=== PATIENT | female | born 1970 | race Two or more races ===

== ENCOUNTER → 2020-02-18 | Outpatient (CLI) | payer OTHER | END | disposition home or self-care (01) | LOC: LAB 14:01 | PROVIDERS: ATTEND Preventive Medicine Preventive Medicine/Occupational Environmental Medicine | DX: Z02.1 Encounter for pre-employment examination (principal) | CPT/HCPCS: 36415; 86706; 86735; 86762; 86765; 86787 ==

== ENCOUNTER → 2020-03-31 | Outpatient (CLI) | payer OTHER | END | disposition home or self-care (01) | LOC: LAB 12:17 | PROVIDERS: ATTEND Nurse Practitioner Family | DX: U07.1 COVID-19 (principal) | CPT/HCPCS: C9803; U0003 ==

== ENCOUNTER 2020-06-05 00:56 | Emergency (ER) | payer SELFPAY ==
[~2020-06-05] VITALS: Ht 152.4 cm; Wt 89.8 kg
[2020-06-05 03:00] VITALS: BP 133/87
[2020-06-05] MEDS ORDERED: KETOROLAC TROMETH 60MG/2ML VIAL IM ONE (03:00)
[2020-06-05 04:00] LABS: Urine Bacteria FEW /hpf (None Seen); Urine Blood Negative /uL (Negative); Urine Mucus FEW (None Seen); Urine Specific Gravity 1.029 (1.001-1.035); Urine WBC 3 /hpf (0 - 5)
== END 2020-06-05 04:46 | disposition home or self-care (01) ==
LOC: ER 00:56
DX: M54.16 Radiculopathy, lumbar region (principal); R07.89 Other chest pain
CPT/HCPCS: 81001; 81025; 96372; 99283; J1885

== ENCOUNTER 2020-06-06 09:34 | Emergency (ER) | payer BC, OTHER ==
[~2020-06-06] VITALS: Ht 165.1 cm; Wt 88.5 kg
[2020-06-06 09:34] VITALS: BP 128/77
[2020-06-06] MEDS ORDERED: traMADol HCL 50 MG TAB PO ONE (10:30)
[2020-06-06] MEDS ORDERED: ONDANSETRON ODT 4 MG TAB PO ONE (10:30)
[2020-06-06 10:35] LABS: Urine Bacteria NONE SEEN /hpf (None Seen); Urine Blood Negative /uL (Negative); Urine Mucus FEW (None Seen); Urine Specific Gravity 1.018 (1.001-1.035); Urine WBC <1 /hpf (0 - 5)
== END 2020-06-06 10:58 | disposition home or self-care (01) ==
LOC: ER 09:34
DX: K57.90 Diverticulosis of intestine, part unspecified, without perforation or abscess without bleeding (principal); K76.0 Fatty (change of) liver, not elsewhere classified
CPT/HCPCS: 74176; 81001; 99284; Q0162

== ENCOUNTER 2020-08-25 06:31 | Emergency (ER) | payer BC ==
[~2020-08-25] VITALS: Ht 165.1 cm; Wt 86.2 kg
[2020-08-25 07:26] VITALS: BP 135/78
[2020-08-25 07:43] LABS: Basophils # (auto) 0 10 ^3/uL (0-0.2); Basophils % (auto) 0.2 % (0.0-2.0); Eosinophils # (auto) 0.2 10 ^3/uL (0-0.8); Eosinophils % (auto) 1.3 % (0.0-7.0); Hemoglobin 16.2 g/dL (12.2-16.2); Lymphocytes # (auto) 1.6 10 ^3/uL (0.4-5.4); Lymphocytes % (auto) 13.5 % (10.0-50.0); Mean Corpuscular Hemoglobin 28.5 pg (28.0-32.0); Mean Corpuscular Hgb Conc. 33.8 g/dL (32.0-36.0); Mean Corpuscular Volume 84.5 fL (80.0-100.0); Monocytes # (auto) 0.6 10 ^3/uL (0-1.3); Monocytes % (auto) 4.8 % (0.0-12.0); Neutrophils # (auto) 9.4 10 ^3/uL (1.6-8.6); Neutrophils % (auto) 80.2 % (37.0-80.0); Nucleated Red Blood Cells % 0.2 %; Platelet Count (auto) 286 10^3/uL (140-450); Red Blood Cells 5.68 10^6/uL (4.0-5.20); Red Cell Distribution Width 14.3 % (11.8-14.3); White Blood Cell 11.7 10^3/uL (4.4-10.8)
[2020-08-25] MEDS ORDERED: SODIUM CHLORIDE 0.9% 1,000 ML IV ONE (07:45)
[2020-08-25] MEDS ORDERED: MORPHINE SULFATE 4 MG/ML SYR/VIAL IV ONE (07:45)
[2020-08-25] MEDS ORDERED: ONDANSETRON HCL 4 MG/2 ML VIAL IV ONE (07:45)
[2020-08-25 07:56] LABS: Albumin 3.7 g/dL (3.4-5.0); Calcium 9.1 mg/dL (8.5-10.1); Potassium 4.2 mmol/L (3.5-5.1)
[2020-08-25 07:58] LABS: Urine Bacteria NONE SEEN /hpf (None Seen); Urine Blood Negative /uL (Negative); Urine Specific Gravity 1.023 (1.001-1.035); Urine WBC 3 /hpf (0 - 5)
[2020-08-25 08:00] LABS: BUN/Creatinine Ratio 17.6; Bilirubin, Total 0.9 mg/dL (0.2-1.0)
== END 2020-08-25 08:54 | disposition home or self-care (01) ==
LOC: ER 06:31
DX: N39.0 Urinary tract infection, site not specified (principal); D72.829 Elevated white blood cell count, unspecified; J45.909 Unspecified asthma, uncomplicated; Z88.0 Allergy status to penicillin
CPT/HCPCS: 36415; 74176; 80053; 81001; 83690; 85025; 96361; 96374; 96375; 99284; J2270; J2405; J7030

== ENCOUNTER 2020-10-14 10:49 | Emergency (ER) | payer BC ==
[~2020-10-14] VITALS: Ht 154.9 cm; Wt 86.2 kg
[2020-10-14] MEDS ORDERED: methylPREDNISolone SOD SUCC 125 MG/2 ML VL ONE (10:55)
[2020-10-14] MEDS ORDERED: methylPREDNISolone SOD SUCC 125 MG/2 ML VL IM ONE (11:00)
[2020-10-14 13:41] VITALS: BP 142/84
[2020-10-14] MEDS ORDERED: EPINEPHrine HCL 1 MG/1 ML AMP SC ONE (14:00)
== END 2020-10-14 14:30 | disposition home or self-care (01) ==
LOC: ER 10:49
DX: T78.40XA Allergy, unspecified, initial encounter (principal); J45.909 Unspecified asthma, uncomplicated; Z88.0 Allergy status to penicillin; X58.XXXA Exposure to other specified factors, initial encounter
CPT/HCPCS: 96372; 99284; J0171; J2930

== ENCOUNTER → 2021-01-25 | Outpatient (CLI) | payer BC ==
[2021-01-25 13:26] LABS: Basophils # (auto) 0 10 ^3/uL (0-0.2); Basophils % (auto) 0.5 % (0.0-2.0); Eosinophils # (auto) 0.2 10 ^3/uL (0-0.8); Eosinophils % (auto) 2.4 % (0.0-7.0); Hematocrit 45.3 % (36.0-46.0); Hemoglobin 15.1 g/dL (12.2-16.2); Lymphocytes # (auto) 2.2 10 ^3/uL (0.4-5.4); Lymphocytes % (auto) 24.9 % (10.0-50.0); Mean Corpuscular Hemoglobin 28.1 pg (28.0-32.0); Mean Corpuscular Hgb Conc. 33.3 g/dL (32.0-36.0); Mean Corpuscular Volume 84.4 fL (80.0-100.0); Monocytes # (auto) 0.7 10 ^3/uL (0-1.3); Monocytes % (auto) 8.4 % (0.0-12.0); Neutrophils # (auto) 5.6 10 ^3/uL (1.6-8.6); Neutrophils % (auto) 63.8 % (37.0-80.0); Red Blood Cells 5.37 10^6/uL (4.0-5.20); Red Cell Distribution Width 13.4 % (11.8-14.3); White Blood Cell 8.8 10^3/uL (4.4-10.8)
[2021-01-25 13:35] LABS: Urine Bacteria NONE SEEN /hpf (None Seen); Urine Blood Negative /uL (Negative); Urine Hyaline Cast FEW /lpf (0 - 2); Urine Mucus FEW (None Seen); Urine Specific Gravity 1.023 (1.001-1.035); Urine WBC 1 /hpf (0 - 5)
[2021-01-25 14:08] LABS: Cholesterol 224 mg/dL (< 200); HDL Cholesterol 51 mg/dL (40-59); LDL Cholesterol 132 mg/dL (< 100); Triglycerides 238 mg/dL (< 150)
== END | disposition home or self-care (01) ==
LOC: LAB 13:12
PROVIDERS: ATTEND Internal Medicine
DX: M54.9 Dorsalgia, unspecified (principal)
CPT/HCPCS: 36415; 80061; 81001; 84443; 85025

== ENCOUNTER → 2021-03-29 | Outpatient (CLI) | payer BC ==
[2021-03-29 10:04] LABS: Basophils # (auto) 0 10 ^3/uL (0-0.2); Basophils % (auto) 0.4 % (0.0-2.0); Eosinophils # (auto) 0.3 10 ^3/uL (0-0.8); Hematocrit 47.4 % (36.0-46.0); Hemoglobin 15.8 g/dL (12.2-16.2); Lymphocytes % (auto) 23.2 % (10.0-50.0); Mean Corpuscular Hemoglobin 28.4 pg (28.0-32.0); Mean Corpuscular Hgb Conc. 33.3 g/dL (32.0-36.0); Mean Corpuscular Volume 85.3 fL (80.0-100.0); Monocytes # (auto) 0.6 10 ^3/uL (0-1.3); Monocytes % (auto) 7.2 % (0.0-12.0); Neutrophils # (auto) 5.8 10 ^3/uL (1.6-8.6); Neutrophils % (auto) 66.2 % (37.0-80.0); Nucleated Red Blood Cells % 0.1 %; Red Blood Cells 5.56 10^6/uL (4.0-5.20); Red Cell Distribution Width 13.3 % (11.8-14.3); White Blood Cell 8.7 10^3/uL (4.4-10.8)
[2021-03-29 10:36] LABS: INR 1.02 (0.9-1.15)
== END | disposition home or self-care (01) ==
LOC: LAB 09:39
PROVIDERS: ATTEND Internal Medicine
DX: R04.0 Epistaxis (principal)
CPT/HCPCS: 36415; 85025; 85610; 85652

== ENCOUNTER 2021-05-13 14:32 | Emergency (ER) | payer BC ==
[~2021-05-13] VITALS: Ht 152.4 cm; Wt 98.0 kg
[2021-05-13 15:19] VITALS: BP 143/61
[2021-05-13] MEDS ORDERED: KETOROLAC TROMETH 60MG/2ML VIAL IM ONE (16:00)
[2021-05-13] MEDS ORDERED: ONDANSETRON ODT 4 MG TAB PO ONE (16:00)
== END 2021-05-13 16:39 | disposition home or self-care (01) ==
LOC: ER 14:38
DX: G44.209 Tension-type headache, unspecified, not intractable (principal); J45.909 Unspecified asthma, uncomplicated; Z90.710 Acquired absence of both cervix and uterus
CPT/HCPCS: 70450; 96372; 99284; J1885; Q0162

== ENCOUNTER 2021-11-01 17:12 | Emergency (ER) | payer BC ==
[~2021-11-01] VITALS: Ht 152.4 cm; Wt 90.7 kg
[2021-11-01] MEDS ORDERED: ACETAMINOPHEN 500 MG TAB PO ONE (17:15)
[2021-11-01] MEDS ORDERED: HYDROcodone-ACET 5/325MG TAB PO ONE (18:00)
[2021-11-01] MEDS ORDERED: AZIT1POW PO (19:53)
[2021-11-01] MEDS ORDERED: METH4PAK PO (19:53)
[2021-11-01 22:00] VITALS: BP 138/84
== END 2021-11-01 22:12 | disposition home or self-care (01) ==
LOC: ER 17:12
DX: J20.9 Acute bronchitis, unspecified (principal); J45.909 Unspecified asthma, uncomplicated; Z90.710 Acquired absence of both cervix and uterus; Z20.822 Contact with and (suspected) exposure to COVID-19; Z88.0 Allergy status to penicillin
CPT/HCPCS: 36415; 71046

== ENCOUNTER → 2021-11-02 | Outpatient (CLI) | payer BC ==
[~2021-11-02] MED LIST: AZIT1POW PO; METH4PAK PO
== END | disposition home or self-care (01) ==
LOC: LAB 07:13
PROVIDERS: ATTEND Nurse Practitioner
DX: Z20.822 Contact with and (suspected) exposure to COVID-19 (principal)
CPT/HCPCS: C9803; U0003

== ENCOUNTER 2024-08-06 15:46 | Inpatient (IN) | payer BC, OTHER ==
[~2024-08-06] VITALS: Ht 152.4 cm; Wt 87.0 kg
--- NOTE | 2024-08-06 15:55 | ECG ---
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
--- NOTE | 2024-08-06 15:58 | ED.PDOC ---
HPI Comments HPI: Poor Historian. 54-year-old female presents to emergency department for evaluation of substernal chest pain that is radiating to the left shoulder. Patient has some clear productive cough patient had a TB test done to the left forearm on July 30, 2024. She went to see her PCP for follow up. This TB test was a work requirement. Patient presenting today with the symptoms suggesting that this is due to the TB test. Is unclear on my assessment that the two are related. Patient voiced some nonspecific shortness of breath that is associated with the heart racing. States that the symptoms have been going on for six days and intermittent in nature. Past Medical History: Asthma, Past Surgical History: Hysterectomy, ectopic Vitals: Temp: 98.2 RR: 18 HR: 85 O2: 92% on RA BP: 128/72 REVIEW OF SYSTEMS: CONSTITUTIONAL: Denies acute: fever, diaphoresis, chills, HEAD: Denies acute: headache, photophobia Eyes: Denies acute: Double vision, vision loss, eye pain, eye discharge. EARS: Denies acute: tinnitus, hearing loss, ear discharge, ear pain, THROAT: Denies acute: sore throat, swelling, difficulty swallowing , pain with swallowing, change in voice. NECK: Denies acute: neck pain, neck swelling, stiff neck. HEART: Denies acute : , LUNGS: Denies acute: wheezing, hemoptysis ABDOMEN: Denies acute: abdominal pain, Nausea, Vomiting, diarrhea, melena , hematemesis, hematochezia SKIN: Denies acute: rash, redness, lesions, itchiness. EXTREMITIES: Denies acute: calf pain, numbness, tingling, weakness, denies pain in extremity. Denies acute: Low back pain. Neuro: Denies acute: focal neurological deficit, motor or sensory focal neurological deficit, tremors, seizure like activity, confusion, dizziness, change in mental status, loss of bowel or bladder function, cauda equina like symptoms. : Denies acute: dysuria, hematuria, flank pain, increase in urinary frequency. PSYCH: Denies acute: hallucination, suicidal ideation, homicidal ideation. FEMALE: Denies acute: abnormal vaginal bleeding, foul odor, unusual discharge. PHYSICAL EXAM: General: ----[id number]----acute distress, awake and alert. Head: normocephalic, atraumatic. Neck: supple, trachea is midline, no swelling. Throat: Normal phonation. Eyes:, no erythema, no purulent discharge, no proptosis, no icterus. Heart: regular rate, regular rhythm, no significant murmur appreciated. Lungs: no apparent respiratory distress, Able to speak in full sentences. No wheezing, no rhonchi, no crackles. No stridors Clear to auscultation bilaterally. Abdomen: non tender to palpation, non distended, soft, no guarding, no rebound, + bowel sounds. Neuro: Awake, Alert, oriented to name, self, situation, follows commands GCS=15. Speech is normal. Skin: no petechia, no purpura, no cyanosis, non-pale, not jaundice. Lower extremities: --no - Pitting edema no deformity, no focal swelling, no calf TTP. Makes eye contact. moves all four extremities. Face: no apparent facial droop. Ambulating in the ED independently. . No nuchal rigidity, Kernig's sign, Brudzinski's sign, no meningeal signs. ED COURSE: Time Seen by MD: 15:52 Primary Care Provider: TRICIA Chong Notes: Nurses Notes, Medications, Allergies Allergies: Coded Allergies: Penicillins (Verified Allergy, Intermediate, 08/06/24) Home Meds Active Scripts Azithromycin (Zithromax) 1 Gm Pow, 1 PACK PO ONCE, #1 PACK Prov:LASHON MCCLAIN MD 11/01/21 Methylprednisolone (Medrol Dosepak) 4 Mg Олег, 4 MG PO UD, #21 TAB UAD Prov:LASHON MCCLAIN MD 11/01/21 Information Source: Patient Mode of Arrival: Ambulatory Severity: Mild Timing: Hours Duration: Since onset Prehospital treatment: None Onset: At Rest Cardiac Risk Factors: None PE Risk Factors: None History of: None Modifying Factors: Nothing Associated Signs and Symptoms: Palpitations Past Medical History PAST MEDICAL HISTORY: Anemia, Anxiety, Asthma Surgical History: Hysterectomy 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 Was a procedure done?: No CP Differential Dx Differential Diagnosis: N/A Differential Diagnosis: Other (Ddx include but not limitied to gastritis, musculoskeletal pain, radiculopathy, atypical chest pain, dissection, aneurysm, ACS, unstable angina, hiatal hernia, GERD, anxiety, costochondritis, PE, pneumothroax, neoplasm, cardiac ischemia, drug abuse, anemia.) X-Ray, Labs, Meds, VS Vital Signs Date Time Temp Pulse Resp B/P (MAP) Pulse Ox O2 Delivery O2 Flow Rate FiO2 08/06/24 21:13 70 18 122/76 (91) 95 08/06/24 21:12 122/76 08/06/24 20:33 98.2 74 18 138/80 (99) 95 98.2 08/06/24 20:33 74 18 95 Room Air 08/06/24 20:31 138/80 08/06/24 18:46 66 08/06/24 18:34 98.2 72 18 142/85 (104) 98 98.2 08/06/24 16:55 84 08/06/24 15:54 85 08/06/24 15:52 98.2 85 18 128/72 (90) 93 98.2 Lab Test 08/06/24 18:49 08/06/24 16:55 08/06/24 16:10 08/06/24 16:01 Range/Units Phosphorus Level 3.9 2.4-5.1 mg/dL Magnesium Level 2.2 2.0 1.6-2.6 mg/dL Troponin I High Sensitivity < 3 L 4 4 </=34 ng/L Triglycerides Level 259 H < 150 mg/dL Cholesterol Level 219 H < 200 mg/dL LDL Cholesterol 144 H < 100 mg/dL HDL Cholesterol 56 40-59 mg/dL Thyroid Stimulating Hormone (TSH) 1.26 0.55-4.78 uIU/mL Urine Color Light-yellow Yellow Urine Clarity Clear Clear Urine pH 6.0 5.0-9.0 Urine Specific [place] 1.018 1.001-1.035 Urine Protein Negative Negative Urine Ketones Trace Negative Urine Blood Negative Negative /uL Urine Nitrite Negative Negative Urine Bilirubin Negative Negative Urine Urobilinogen Normal Negative mg/dL Urine Leukocyte Esterase 1+ Negative /uL Urine RBC <1 0 - 4 /hpf Urine Microscopic WBC 5 0-5 /HPF Urine Squamous Epithelial Cells Few <5 /hpf Urine Bacteria None seen None Seen /hpf Urine Glucose Normal Normal mg/dL Urine Opiates Screen Neg NEGATIVE Urine Fentanyl Screen Neg NEGATIVE Urine Barbiturates Screen Neg NEGATIVE Urine Phencyclidine Screen Neg NEGATIVE Urine Amphetamines Screen Neg NEGATIVE Urine Benzodiazepines Screen Neg NEGATIVE Urine Cocaine Screen Neg NEGATIVE Urine Cannabinoids Screen Neg NEGATIVE White Blood Count 14.4 H 4.4-10.8 10^3/uL Red Blood Count 5.41 H 4.0-5.20 10^6/uL Hemoglobin 15.4 12.2-16.2 g/dL Hematocrit 46.1 H 36.0-46.0 % Mean Corpuscular Volume 85.3 80.0-100.0 fL Mean Corpuscular Hemoglobin 28.4 28.0-32.0 pg Mean Corpuscular Hemoglobin Concent 33.3 32.0-36.0 g/dL Red Cell Distribution Width 13.2 11.8-14.3 % Platelet Count 243 140-450 10^3/uL Mean Platelet Volume 8.8 6.9-10.8 fL Neutrophils (%) (Auto) 69.4 37.0-80.0 % Lymphocytes (%) (Auto) 22.1 10.0-50.0 % Monocytes (%) (Auto) 6.4 0.0-12.0 % Eosinophils (%) (Auto) 1.7 0.0-7.0 % Basophils (%) (Auto) 0.4 0.0-2.0 % Neutrophils # (Auto) 10.0 H 1.6-8.6 10 ^3/uL Lymphocytes # (Auto) 3.2 0.4-5.4 10 ^3/uL Monocytes # (Auto) 0.9 0-1.3 10 ^3/uL Eosinophils # (Auto) 0.2 0-0.8 10 ^3/uL Basophils # (Auto) 0.1 0-0.2 10 ^3/uL Nucleated Red Blood Cells 0.1 % D-Dimer, Quantitative 0.21 0.0-0.49 mg/L FEU Sodium Level 138 136-145 mmol/L Potassium Level 3.6 3.5-5.1 mmol/L Chloride Level 102 98-107 mmol/L Carbon Dioxide Level 26 20-31 mmol/L Anion Gap 10 5-15 Blood Urea Nitrogen 21 9-23 mg/dL Creatinine 0.77 0.550-1.02 mg/dL Glomerular Filtration Rate Calc 93 >90 mL/min BUN/Creatinine Ratio 27.3 H 10.0-20.0 Serum Glucose 110 H 74-106 mg/dL Hemoglobin A1c 5.4 <5.7 % A1C Lactic Acid Level 1.0 0.4-2.0 mmol/L Calcium Level 10.1 8.7-10.4 mg/dL Total Bilirubin 0.4 0.2-1.0 mg/dL Aspartate Amino Transferase (AST) 17 13-40 U/L Alanine Aminotransferase (ALT) 21 7-40 U/L Alkaline Phosphatase 96 46-116 U/L B-Type Natriuretic Peptide 6.39 0-100 pg/mL Total Protein 7.8 5.7-8.2 g/dL Albumin 4.9 H 3.2-4.8 g/dL Vitamin B12 Level 331 211-911 pg/mL Vitamin D 25-Hydroxy 19.8 L 30.0-100 ng/mL Current Medications Medications (Trade) Dose Ordered Sig/Aaron Route Start Time Stop Time Status Last Admin Aspirin (Ecotrin Enteric Coated Tablet) 325 mg ONCE ONCE PO 08/06/24 16:15 08/06/24 16:16 DC 08/06/24 20:30 Nitroglycerin (Ntrostat Sublingual) 0.4 mg ONCE ONCE SL 08/06/24 16:15 08/06/24 16:16 DC 08/06/24 20:31 [place] [address] Ph: [phone] DIAGNOSTIC IMAGING Diagnostic Imaging Report : [id number] Signed PATIENT: WENDY DELGADO ACCT: [id number] UNIT: [id number] : 1970 LOC: ER ROOM / BED: / AGE / SEX: 54 / F ADM STATUS: REG ER SERVICE 1552 ORDERING PHYSICIAN: AMENA MINAYA DO PROCEDURE(s): CXRP - CHEST PORTABLE REASON: CP ORDER NUMBER(s): [id number], ACCESSION NUMBER(s): [id number] CHEST RADIOGRAPH Indication: CP Technique: Single frontal view of the chest was obtained COMPARISON: None FINDINGS: Lines and Tubes: None Lungs: Clear Pleura: No effusion. No pneumothorax. Cardiomediastinal contours: Unremarkable Bones: Unremarkable IMPRESSION: No acute disease. ATED BY: MAYUR WHITAKER MD DICTATED DATE/TIME: 08/06/241646 SIGNED BY: MAYUR WHITAKER MD SIGNED DATE/TIME: 08/06/241646 CC: Time of 1ST Reevaluation: 16:20 Reevaluation 1ST: Unchanged Patient Education/Counseling: Diagnosis, Treatment Family Education/Counseling: No Family Present Comments I am unable to see a relationship between the TB test and the patient's presentation today. Nonetheless patient will be admitted for further evaluation and treatment. Vital signs are stable in triage. Patient presented with the above HPI.--cardiac----workup was initiated. patient was found with the above mentioned diagnosis. the following medications were ordered: please refer to order lists of meds and tests obtained by myself Dr. Minaya. Patient ED course and VS have been stabilized. Patient has been reassessed in the ED and remained in a stable condition. Patient has been observed in the ED adequate length of time to insure improvement/stability. Escalation of care considered: Consideration of escalation to observation or admission Patient was ADMITTED to the medicine team for further evaluation and treatment of their presentation. All the reports of any imaging studies that were ordered by myself were reviewed by myself. Departure 1 Departure Time of Disposition: 16:41 Impression: Primary Impression: Chest pain Additional Impression: Leukocytosis Disposition: ADMITTED INPATIENT Admit to: [facility] Condition: Guarded Additional Instructions: [place] [address] Ph: [phone] DIAGNOSTIC IMAGING Diagnostic Imaging Report : [id number] Signed PATIENT: WENDY DELGADO ACCT: [id number] UNIT: [id number] : 1970 LOC: ER ROOM / BED: / AGE / SEX: 54 / F ADM STATUS: REG ER SERVICE 1551 ORDERING PHYSICIAN: AMENA MINAYA DO PROCEDURE(s): CXRP - CHEST PORTABLE REASON: CP ORDER NUMBER(s): [id number], ACCESSION NUMBER(s): [id number] CHEST RADIOGRAPH Indication: CP Technique: Single frontal view of the chest was obtained COMPARISON: None FINDINGS: Lines and Tubes: None Lungs: Clear Pleura: No effusion. No pneumothorax. Cardiomediastinal contours: Unremarkable Bones: Unremarkable IMPRESSION: No acute disease. ATED BY: MAYUR WHITAKER MD DICTATED DATE/TIME: 08/06/241646 SIGNED BY: MAYUR WHITAKER MD SIGNED DATE/TIME: 08/06/241646 CC: Discharged With: Self Critical Care Note Critical Care Time?: No Heart Score Heart Score: Heart Score Response (Comments) Value History Slightly Suspicious 0 EKG Normal 0 Age 45-64 1 Risk Factors 1 or 2 risk factors 1 Troponin Normal limit 0 Total 2 I personally scribed for AMENA MINAYA DO ([email or web address]) on 08/06/24 at 16:23. Electronically submitted by Yani Hairston ([employer]). I personally scribed for AMENA MINAYA DO ([email or web address]) on 08/06/24 at 17:04. Electronically submitted by Yani Hairston ([employer]). I personally scribed for AMENA MINAYA DO ([email or web address]) on 08/06/24 at 17:38. Electronically submitted by Yani Hairston ([employer]). I personally scribed for AMENA MINAYA DO ([email or web address]) on 08/06/24 at 19:46. Electronically submitted by Naomi Wood ([email or web address]). AMENA MINAYA DO Aug 06, 2024 15:57
[2024-08-06 16:17] LABS: Basophils # (auto) 0.1 10 ^3/uL (0-0.2); Basophils % (auto) 0.4 % (0.0-2.0); Eosinophils # (auto) 0.2 10 ^3/uL (0-0.8); Eosinophils % (auto) 1.7 % (0.0-7.0); Hematocrit 46.1 % (36.0-46.0); Hemoglobin 15.4 g/dL (12.2-16.2); Lymphocytes # (auto) 3.2 10 ^3/uL (0.4-5.4); Lymphocytes % (auto) 22.1 % (10.0-50.0); Mean Corpuscular Hemoglobin 28.4 pg (28.0-32.0); Mean Corpuscular Hgb Conc. 33.3 g/dL (32.0-36.0); Mean Corpuscular Volume 85.3 fL (80.0-100.0); Monocytes # (auto) 0.9 10 ^3/uL (0-1.3); Monocytes % (auto) 6.4 % (0.0-12.0); Neutrophils % (auto) 69.4 % (37.0-80.0); Nucleated Red Blood Cells % 0.1 %; Platelet Count (auto) 243 10^3/uL (140-450); Red Blood Cells 5.41 10^6/uL (4.0-5.20); Red Cell Distribution Width 13.2 % (11.8-14.3); White Blood Cell 14.4 10^3/uL (4.4-10.8)
[2024-08-06 16:36] LABS: Alanine Aminotransferase 21 U/L (7-40); Alkaline Phosphatase 96 U/L (46-116); Anion Gap 10 (5-15); Aspartate Aminotransferase 17 U/L (13-40); BUN/Creatinine Ratio 27.3 (10.0-20.0); Bilirubin, Total 0.4 mg/dL (0.2-1.0); Blood Urea Nitrogen 21 mg/dL (9-23); Calcium 10.1 mg/dL (8.7-10.4); Carbon Dioxide 26 mmol/L (20-31); Chloride 102 mmol/L (98-107); Potassium 3.6 mmol/L (3.5-5.1); Sodium 138 mmol/L (136-145); Total Protein 7.8 g/dL (5.7-8.2)
[2024-08-06 16:37] LABS: Albumin 4.9 g/dL (3.2-4.8); Glucose 110 mg/dL (74-106)
--- NOTE | 2024-08-06 16:50 | DVH ---
CHEST RADIOGRAPH Indication: CP Technique: Single frontal view of the chest was obtained COMPARISON: None FINDINGS: Lines and Tubes: None Lungs: Clear Pleura: No effusion. No pneumothorax. Cardiomediastinal contours: Unremarkable Bones: Unremarkable IMPRESSION: No acute disease.
[2024-08-06 17:41] LABS: Urine Bacteria None Seen /hpf (None Seen)
[2024-08-06 18:21] LABS: Urine Blood Negative /uL (Negative); Urine Clarity Clear (Clear); Urine Color Light-Yellow (Yellow); Urine Protein, UAD Negative (Negative); Urine Specific Gravity 1.018 (1.001-1.035); Urine Squamous Epithelial Cell FEW /hpf (<5); Urine Urobilinogen Normal (Negative); Urine WBC 5 /HPF (0-5)
[2024-08-06] MEDS: ASPirin-EC 325mg tab PO ONE (20:30)
[2024-08-06] MEDS: NITROGLYCERIN 0.4 MG SL TAB SL ONE (20:31)
[2024-08-06] MEDS ORDERED: DOCUSATE SOD 100 MG CAP PO PRN (22:45)
[2024-08-06] MEDS ORDERED: ONDANSETRON HCL 4 MG/2 ML VIAL IV PRN (22:45)
[2024-08-06] MEDS ORDERED: cefTRIAXone 1GM/50ML D5W 50 ML IV ONE (22:45)
[2024-08-06] MEDS ORDERED: DEXTROSE (50%) 50ML SYRG IV PRN (22:45)
[2024-08-06] MEDS ORDERED: NITROGLYCERIN 0.4 MG SL TAB SL PRN (22:45)
[2024-08-06] MEDS ORDERED: LORazepam 0.5 MG TAB PO PRN (22:45)
[2024-08-06] MEDS ORDERED: MORPHINE SULFATE INJ 2 MG/ml SYRG IV PRN (22:45)
--- NOTE | 2024-08-06 22:49 | DVHHPRES ---
History of Present Illness Resident Creating Document: FELIBERTO FABIAN History of Present Illness Rachelle Abdullahi is a 54-year-old female patient who presents to ED with chief complaint of progressive dyspnea from functional class I to functional class III in the past week, associated with flu-like symptoms (denies weakness, nasal congestion, chills, oppressive retrosternal chest pain which worsens with cough in deep breaths) which started approximately one week ago after administration of PPD vaccine. Patient visited urgent care proximally two days ago where she was giving inhaler, steroids and Tylenol, but patient is did not improve prompting her visit to the ED. denies palpitation, syncope, nausea, vomiting, diarrhea, bleeding, dysuria and motor or sensory deficits. Past medical history: Asthma, 2007 bronchitis, 2019 abnormal uterine bleeding after 3rd with abnormal biopsy per patient, ectopic 1995 Surgical history: 2019 hysterectomy, tubal oophorectomy in 1995 Family history: Mother has diabetes, hypertension and breast cancer Social history: Lives in [place] alone (next of kin would be son). Used to live in [place]. Denies current tobacco, alcohol and other drug abuse Allergies: Penicillin and PPD vaccine Home medication denies. Was given inhaler, steroids and Tylenol in urgent care approximately two days ago. Patient seen and examined at bedside. Currently has no new complaints. Past Medical History Per HPI Past Surgical History Per HPI Family History Per HPI Past Social History Per HPI Review of Systems Review of Systems Per HPI Allergies: Coded Allergies: Penicillins (Verified Allergy, Intermediate, 08/06/24) Exam Vital Signs Vital Signs Date Time Temp Pulse Resp B/P (MAP) Pulse Ox O2 Delivery O2 Flow Rate FiO2 08/06/24 21:13 70 18 122/76 (91) 95 08/06/24 20:33 98.2 98.2 08/06/24 20:33 Room Air Exam Patient lying in bed, in no acute distress General: Lucid, afebrile, mucosae are moist Cardiovascular: Normal S1 and S2. No murmurs, gallops or rubs Respiratory: Normal ventilation mechanics. Clear lung sounds on auscultation Abdomen: Soft, nontender, no organomegaly, normal bowel sounds MSK/skin: Mobilizes 4 limbs. Skin is dry and warm Neurological: Oriented in 3 spheres. No motor no sensitive deficits. Pupils are isocoric and reactive Labs/Xrays Labs Test 4/16/25 18:49 08/06/24 16:10 08/06/24 16:01 Range/Units Troponin I High Sensitivity < 3 L </=34 ng/L Urine Color Light-yellow Yellow Urine Clarity Clear Clear Urine pH 6.0 5.0-9.0 Urine Specific [place] 1.018 1.001-1.035 Urine Protein Negative Negative Urine Ketones Trace Negative Urine Blood Negative Negative /uL Urine Nitrite Negative Negative Urine Bilirubin Negative Negative Urine Urobilinogen Normal Negative mg/dL Urine Leukocyte Esterase 1+ Negative /uL Urine RBC <1 0 - 4 /hpf Urine Microscopic WBC 5 0-5 /HPF Urine Squamous Epithelial Cells Few <5 /hpf Urine Bacteria None seen None Seen /hpf Urine Glucose Normal Normal mg/dL White Blood Count 14.4 H 4.4-10.8 10^3/uL Red Blood Count 5.41 H 4.0-5.20 10^6/uL Hemoglobin 15.4 12.2-16.2 g/dL Hematocrit 46.1 H 36.0-46.0 % Mean Corpuscular Volume 85.3 80.0-100.0 fL Mean Corpuscular Hemoglobin 28.4 28.0-32.0 pg Mean Corpuscular Hemoglobin Concent 33.3 32.0-36.0 g/dL Red Cell Distribution Width 13.2 11.8-14.3 % Platelet Count 243 140-450 10^3/uL Mean Platelet Volume 8.8 6.9-10.8 fL Neutrophils (%) (Auto) 69.4 37.0-80.0 % Lymphocytes (%) (Auto) 22.1 10.0-50.0 % Monocytes (%) (Auto) 6.4 0.0-12.0 % Eosinophils (%) (Auto) 1.7 0.0-7.0 % Basophils (%) (Auto) 0.4 0.0-2.0 % Neutrophils # (Auto) 10.0 H 1.6-8.6 10 ^3/uL Lymphocytes # (Auto) 3.2 0.4-5.4 10 ^3/uL Monocytes # (Auto) 0.9 0-1.3 10 ^3/uL Eosinophils # (Auto) 0.2 0-0.8 10 ^3/uL Basophils # (Auto) 0.1 0-0.2 10 ^3/uL Nucleated Red Blood Cells 0.1 % D-Dimer, Quantitative 0.21 0.0-0.49 mg/L FEU Sodium Level 138 136-145 mmol/L Potassium Level 3.6 3.5-5.1 mmol/L Chloride Level 102 98-107 mmol/L Carbon Dioxide Level 26 20-31 mmol/L Anion Gap 10 5-15 Blood Urea Nitrogen 21 9-23 mg/dL Creatinine 0.77 0.550-1.02 mg/dL Glomerular Filtration Rate Calc 93 >90 mL/min BUN/Creatinine Ratio 27.3 H 10.0-20.0 Serum Glucose 110 H 74-106 mg/dL Lactic Acid Level 1.0 0.4-2.0 mmol/L Calcium Level 10.1 8.7-10.4 mg/dL Magnesium Level 2.0 1.6-2.6 mg/dL Total Bilirubin 0.4 0.2-1.0 mg/dL Aspartate Amino Transferase (AST) 17 13-40 U/L Alanine Aminotransferase (ALT) 21 7-40 U/L Alkaline Phosphatase 96 46-116 U/L B-Type Natriuretic Peptide 6.39 0-100 pg/mL Total Protein 7.8 5.7-8.2 g/dL Albumin 4.9 H 3.2-4.8 g/dL Assessment/Plan Assessment/Plan Assessment: Probable pneumonia Gram-positive/Gram-negative Leukocytosis secondary to steroid use Noncardiac chest pain - probable pleuritic chest pain Asthma History of bronchitis in 2006 Newly diagnosed dyslipidemia Vitamin-D deficiency Plan: Chest x-ray shows no acute intra thoracic abnormalities. Ordered chest CT Ordered avalos cultures (blood, urine and sputum) and swab for influenza and COVID Currently under empiric IV antibiotic (azithromycin levofloxacin). On IV steroids and bronchodilators. Started atorvastatin Ordered echocardiogram Replenish vitamin-D Goals of care discussed with patient for over18 minutes: Full code status Discussed plan with Dr. Gibson, patient and nurses: Pending workup to evaluate pneumonia, currently patient is under empiric IV antibiotic (azithromycin and levofloxacin), IV steroids and bronchodilators. Plan discussed with: Patient, Other (Nurses) My Orders Orders - FELIBERTO FABIAN RESIDENT Procedure Category Date Status Time Admit ADMIT 08/06/24 Verified 22:35 Code Status CODE 08/06/24 Verified 22:35 Vital Signs ERICA 08/06/24 Verified 22:35 Review Orders With [facility] 08/06/24 Verified Adm. 22:35 Lorazepam Tablet PHA 08/06/24 Verified (Ativan Tablet) 22:45 Docusate Sodium PHA 08/06/24 Verified Capsule (Colace 22:45 Acetaminophen Tablet PHA 08/06/24 Verified (Tylenol Tablet) 22:45 Notify Md Of Changes [facility] 08/06/24 Verified From Base 22:35 Advance Directive [facility] 08/06/24 Verified 22:35 Chest Two Views XY 08/07/24 Verified Routine 04:00 Echo 2d Mode Cardiac US 08/06/24 Verified DOP 22:35 Patient Condition ORDERS 08/06/24 Verified 22:35 Allergies ERICA 08/06/24 Verified 22:35 Ondansetron Hcl PHA 08/06/24 Verified (Zofran) 22:45 Morphine 2mg Iv Q4hprn [facility] 08/06/24 Verified 22:45 Lovenox 40mg PHA 08/07/24 Verified 10:[address] [facility] 08/06/24 Verified Sublingual (Ntrostat 22:[address] [facility] 08/06/24 Verified Injection 22:45 Oxygen By Nasal RT 08/06/24 Verified Cannula 22:35 Stat Ekg For Chest [facility] 08/06/24 Verified Pain 22:35 Notify Md Of Changes [facility] 08/06/24 Verified From Base 22:35 Restaurant Recruiter For [facility] 08/06/24 Verified 24 Hours 22:35 Emergency Dysrhythmia [facility] 08/06/24 Verified Protocol 22:35 Rhythm Strips Once [facility] 08/06/24 Verified Every Shift 22:35 Vitamin D, 25-Hydroxy LAB 08/06/24 Verified 22:35 Vitamin B12 LAB 08/06/24 Verified 22:35 Thyroid Stimulating LAB 08/06/24 Verified Hormone 22:35 Phosphorus LAB 08/06/24 Verified 22:35 Magnesium LAB 08/06/24 Verified 22:35 Lipid Panel LAB 08/06/24 Verified 22:35 Hemoglobin A1c LAB 08/06/24 Verified 22:35 Drug Screen LAB 08/06/24 Verified 22:35 Complete Blood Count LAB 08/07/24 Verified 04:00 Comprehensive LAB 08/07/24 Verified Metabolic Panel 04:00 PTPTT LAB 08/07/24 Verified 04:00 Azithromycin 500mg/ PHA 08/07/24 Verified 250ml (Zithromax 50 10:00 Azithromycin 500mg/ PHA 08/06/24 Verified 250ml (Zithromax 50 22:45 Ceftriaxone Ivpb PHA 08/07/24 Verified Rocephin 09:00 Ceftriaxone Ivpb PHA 08/06/24 Verified Rocephin 22:45 NS PHA 08/06/24 Verified 22:45 NS PHA 08/06/24 Verified 22:45 Ipratropium Medneb PHA 08/07/24 Verified (Atrovent Medneb) 06:00 Levalbuterol Hcl PHA 08/07/24 Verified (Xopenex Medneb) 00:00 Glucose Blood PHA 08/07/24 Verified (Accu-Chek Comfort 07:00 Mild Sliding Scale PHA 08/07/24 Verified 07:00 Dextrose 50% Syringe PHA 08/06/24 Verified 22:45 Methylprednisolone PHA 08/07/24 Verified Sod Succ (Solu Medrol 10:00 Methylprednisolone PHA 08/06/24 Verified Sod Succ (Solu Medrol 22:45 Date of Service: Aug 06, 2024 Billing Provider: MIKAYLA GIBSON MD Common Visit Codes: [id number] INP/OBS CARE (HIGH) FELIBERTO FABIAN RESIDENT Aug 06, 2024 22:49 MIKAYLA GIBSON MD Aug 07, 2024 19:07
[2024-08-06 23:10] LABS: Magnesium 2.2 mg/dL (1.6-2.6)
[2024-08-06 23:11] LABS: Phosphorus 3.9 mg/dL (2.4-5.1)
[2024-08-06 23:50] LABS: Amphetamine Screen, Urine Neg (NEGATIVE); Barbiturate Scree,Urine Neg (NEGATIVE); Benzodiazephine Screen, Urine Neg (NEGATIVE); Cannabinoid Screen, Urine Neg (NEGATIVE); Cocaine Screen, Urine Neg (NEGATIVE); Opiate Scree,Urine Neg (NEGATIVE); Phencyclidine Screen, Urine Neg (NEGATIVE)
[2024-08-07] VITALS (16 sets, daily range): BP systolic 110–130; BP diastolic 64–79; PULSE 58–111; RESP 12–20; TEMP 97–98.2; O2SAT 91–100
[2024-08-07] MEDS: LEVALBUTEROL HCL 1.25 MG/3 ML NEB NEB SCH (00:38)
[2024-08-07] MEDS: IPRATROPIUM BROM 0.5 MG/2.5ML INH SOL NEB SCH (00:38)
[2024-08-07] MEDS: SODIUM CHLORIDE 0.9% 1,000 ML IV ONE (01:38)
[2024-08-07] MEDS: AZITHROMYCIN 500MG/ 250ML 250 ML IV ONE (01:38)
[2024-08-07] MEDS: ACETAMINOPHEN 325 MG TAB PO PRN (01:38)
[2024-08-07] MEDS: methylPREDNISolone SOD SUCC 40 MG/ML VL IV ONE (01:51)
[2024-08-07] MEDS: SODIUM CHLORIDE 0.9% 1,000 ML IV SCH (02:15)
[2024-08-07] MEDS: ERGOCALCIFEROL 50,000 UNIT(1.25MG) CAP PO SCH (05:15)
[2024-08-07] MEDS: ATORVASTATIN 20 MG TAB PO ONE (05:15)
[2024-08-07] MEDS ORDERED: IPRATROPIUM BROM 0.5 MG/2.5ML INH SOL NEB SCH (06:00)
[2024-08-07] MEDS: InsuLIN REG 1unit/0.01ml Soln (100units/ml) SC SCH (06:22)
[2024-08-07] MEDS: ACCU-CHEK COMFORT CURVE STRIP VI SCH (06:22)
--- NOTE | 2024-08-07 06:39 | DVH ---
XY CHEST TWO VIEWS ROUTINE CLINICAL HISTORY: Pneumonia COMPARISON: CHEST TWO VIEWS ROUTINE on DOS: 11/01/21, CXR2 on DOS: 11/01/21 TECHNIQUE: Frontal and lateral view of the chest was obtained FINDINGS: Lines and Tubes: None Lungs: No focal consolidation. Pleura: No effusion. No pneumothorax. Cardiomediastinal contours: Unremarkable Bones: No acute osseous abnormality. IMPRESSION: 1. No acute cardiopulmonary disease.
--- NOTE | 2024-08-07 06:43 | ECG ---
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
--- NOTE | 2024-08-07 06:43 | ECG ---
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
--- NOTE | 2024-08-07 07:08 | DVH ---
EXAM: CT Chest Without Intravenous Contrast CLINICAL INDICATION: Pneumonia TECHNIQUE: Axial computed tomography images of the chest without intravenous contrast. This CT exam was performed using one or more of the following dose reduction techniques: automated exposure cont rol, adjustment of the mA and/or kV according to patient size, and/or use of iterative reconstruction technique. CONTRAST: COMPARISON: None FINDINGS: LUNGS AND PLEURAL SPACES: Subtle consolidation of the medial aspect of the right lower lobe could b e atelectasis or pneumonia. No significant effusion. HEART: Unremarkable. No cardiomegaly. No significant pericardial effusion. No significant crabtree ry artery calcifications. MEDIASTINUM: Small esophageal hiatal hernia. BONES/JOINTS: Unremarkable. No acute fracture. No dislocation. SOFT TISSUES: Unremarkable. VASCULATURE: Unremarkable. No thoracic aortic aneurysm. LYMPH NODES: Unremarkable. No enlarged lymph nodes. LIVER: Fatty liver. OTHER FINDINGS: . IMPRESSION: 1. Subtle consolidation of the medial aspect of the right lower lobe could be atelectasis or pneumon ia. 2. Small esophageal hiatal hernia.
[2024-08-07 08:23] LABS: Basophils # (auto) 0 10 ^3/uL (0-0.2); Basophils % (auto) 0.2 % (0.0-2.0); Eosinophils # (auto) 0 10 ^3/uL (0-0.8); Eosinophils % (auto) 0.1 % (0.0-7.0); Hematocrit 46.1 % (36.0-46.0); Lymphocytes # (auto) 1.4 10 ^3/uL (0.4-5.4); Mean Corpuscular Hgb Conc. 32.5 g/dL (32.0-36.0); Mean Corpuscular Volume 86.1 fL (80.0-100.0); Monocytes # (auto) 0.1 10 ^3/uL (0-1.3); Monocytes % (auto) 1.4 % (0.0-12.0); Neutrophils # (auto) 6.7 10 ^3/uL (1.6-8.6); Neutrophils % (auto) 81.3 % (37.0-80.0); Nucleated Red Blood Cells % 0.2 %; Platelet Count (auto) 215 10^3/uL (140-450); Red Blood Cells 5.35 10^6/uL (4.0-5.20); Red Cell Distribution Width 13.5 % (11.8-14.3); White Blood Cell 8.3 10^3/uL (4.4-10.8)
[2024-08-07 08:31] LABS: INR 1.05 (0.9-1.15); Partial Thromboplastin Time 28.5 SEC (24.5-34.5); Prothrombin Time 11.1 sec (9.3-11.8)
[2024-08-07 08:36] LABS: Alanine Aminotransferase 20 U/L (7-40); Albumin 4.5 g/dL (3.2-4.8); Alkaline Phosphatase 78 U/L (46-116); Anion Gap 9 (5-15); Aspartate Aminotransferase 15 U/L (13-40); BUN/Creatinine Ratio 21.9 (10.0-20.0); Bilirubin, Total 0.6 mg/dL (0.2-1.0); Blood Urea Nitrogen 14 mg/dL (9-23); Carbon Dioxide 25 mmol/L (20-31); Chloride 106 mmol/L (98-107); Potassium 4.2 mmol/L (3.5-5.1); Sodium 140 mmol/L (136-145); Total Protein 7.4 g/dL (5.7-8.2)
[2024-08-07 08:37] LABS: Glucose 142 mg/dL (74-106)
[2024-08-07] MEDS ORDERED: levoFLOXacin 500MG 100 ML IV SCH (10:00)
[2024-08-07] MEDS ORDERED: methylPREDNISolone SOD SUCC 40 MG/ML VL IV SCH (10:00)
--- NOTE | 2024-08-07 10:18 | DVHPNRES ---
Progress Note Date Seen: Aug 07, 2024 Resident Creating Document: MARITZA KILGORE RESIDENT Has the PT tested + for MRSA If YES, has PT been informed?: No Medical Necessity Reason Pt with a Central, PICC or Fol: No Subjective Review of Systems This is a 54-year-old female with past medical history of asthma, bronchitis, ectopic in 1995 command hysterectomy in 2019, tubal oophorectomy in 1996. Patient presented to the ED with chief complaint of cough associated with shortness of breaths. The patient states that has been having flu-like symptoms that started last week after administration of PPD vaccine. Patient believes that she got an allergic reaction from the PPD vaccine which caused her to be sick. Patient reports slightly febrile over the weekend associated with cough, shortness of breath and sharp chest pain in the left side of the chest. Upon admission initial labs showed a WBC of 14.4, BNP was grossly unremarkable. Lactic acid was normal, urinalysis came back suggesting UTI. Upon my examination, the patient still reports being slightly shortness of breath with chest pain in the left side of the chest that is reproducible to palpation and gets worse with deep palpation. Patient is currently on room air saturating 93%. We will admit the patient for further assessment and management. Patient seen and examined at bedside. Patient is currently alert and oriented in person, place and time. Patient is currently hemodynamically stable on room air saturating 93-94%. Patient reports left-sided chest pain that is reproducible to palpation and it seems to be more pleuritic type of pain. Patient denies current fever/chills, abdominal tenderness, peripheral edema or any other complaints at this time. We will wait for echocardiogram continue IV antibiotics CPAP azithromycin and ceftriaxone. Initial chest x-ray was grossly unremarkable but CT scan of the chest is showing minimal opacities in the right lower lobe which could be due to atelectasis or possible consolidation. ROS Constitutional: Denies weight loss, fever and chills. HEENT: Denies changes in vision and hearing. Respiratory: Reports mild shortness of breath and cough Cardiovascular: Reports chest pain in the left side of the chest. Denies palpitations GI: Denies abdominal pain, nausea, vomiting and diarrhea. : Denies dysuria and urinary frequency. Musculoskeletal: Denies myalgias and joint pain Skin: Denies rash and pruritus. Neurological: Denies dizziness, headache, vision or hearing problems Objective vital signs Vital Sign Date Time Temp Pulse Resp B/P (MAP) Pulse Ox O2 Delivery O2 Flow Rate FiO2 08/07/24 08:30 98.2 81 17 119/68 (85) 92 98.2 08/07/24 03:16 Room Air* 0 21 Total Intake and Output 08/06/24 08/06/24 08/07/24 15:00 23:00 07:00 Intake Total 1000 ml Balance 1000 ml medications Current Medications Medications Dose Ordered Sig/Aaron Route Start Time Stop Time Status Last Admin Dose Admin Lorazepam 0.5 mg Q6HP PRN PO 08/06/24 22:45 Docusate Sodium 100 mg BIDPRN PRN PO 08/06/24 22:45 Acetaminophen 650 mg Q6HP PRN PO 08/06/24 22:45 08/07/24 01:38 650 MG Ondansetron HCl 4 mg Q4HP PRN IV 08/06/24 22:45 Morphine Sulfate 2 mg Q4HPRN PRN IV 08/06/24 22:45 Enoxaparin Sodium 40 mg DAILY SC 08/07/24 10:00 Nitroglycerin 0.4 mg Q5MINP PRN SL 08/06/24 22:45 Morphine Sulfate 2 mg Q30M PRN IV 08/06/24 22:45 Azithromycin 250 ml @ 125 mls/hr Q24H IV 08/07/24 21:00 Sodium Chloride 1,000 ml @ 75 mls/hr [id number] IV 08/06/24 22:45 Levalbuterol HCl 0.625 mg Q6HR NEB 08/07/24 00:00 08/07/24 07:20 0.625 MG Diagnostic Test (Pha) 1 strip ACHS 08/07/24 07:00 08/07/24 06:22 1 STRIP Insulin Human Regular ACHS SC 08/07/24 07:00 Dextrose 50 ml UD PRN IV 08/06/24 22:45 Methylprednisolone Sodium Succinate 40 mg BID IV 08/07/24 10:00 Ipratropium [place] 0.5 mg Q6HR NEB 08/07/24 00:00 08/07/24 07:20 0.5 MG Atorvastatin Calcium 40 mg HS PO 08/07/24 22:00 Ergocalciferol 50,000 unit Q7D PO 08/07/24 05:15 08/07/24 05:15 50,000 UNIT Ceftriaxone Sodium 50 ml @ 100 mls/hr DAILY@09 IV 08/07/24 10:00 Examination Physical Examination General: Patient alert and oriented in person, place and time. Patient following commands. HEENT: Normocephalic, atraumatic, moist mucous membranes Respiratory/pulmonary: Clear lungs bilaterally, decrease breath sounds bilateral. no major crackles or wheezes at this time. Cardiovascular: Normal heart sounds S1 and S2 with no associated murmurs Abdomen: Abdomen nondistended, there is no pain to palpation in any of the abdominal quadrants, no palpable masses. Extremities: There is no peripheral edema present at the lower extremities. Peripheral Pulses: 3+ Radial (R). 3+ Radial (L). 3+ Dorsalis pedis (R). 3+ Dorsalis pedis(L) Skin: No rashes or pruritus, there is no sacral edema present at this time. Neurological: Intact cranial nerves with no focal neurologic deficits laboratory and microbiology Laboratory Tests 08/07/24 07:35 Test 08/07/24 07:35 Range/Units Serum Glucose 142 H 74-106 mg/dL Problem List/Assessment/Plan Problem List/Assessment/Plan Assessment/Plan Acute hypoxic respiratory failure likely do to Gram+/- bacterial pneumonia Possible viral pneumonia Acute bronchitis Acute chest pain likely non cardiac, likely pleuritic due to above questionable reaction to PPD vaccine History of asthma, controlled at this time -currently on room air saturating 93-94% -initial chest x-ray was grossly unremarkable without clear evidence of consolidations -CT scan of the chest showed minimal opacities in the right lower lobe which could represent atelectasis or consolidation. -Trops were negative -BNP was on normal range -start IV azithromycin and ceftriaxone -ordered influenza, COVID Polly antigen test -continue methylprednisolone 40 mg IV b.i.d. -continue respiratory therapy with albuterol and ipratropium med -monitor saturation closely -ordered echocardiogram Dyslipidemia -lipid panel showed elevated total cholesterol, triglycerides and LDL -start atorvastatin 40 mg daily Vitamin-D deficiency -start vitamin-D 50 K units weekly Morbid obesity -counseled on lifestyle modifications, diet and exercise Goals of care discussed with the patient at bedside for > 25min, FULL CODE Plan discussed with Dr. Gibson Plan discussed with: Patient My Orders My Orders Orders - MARITZA KILGORE Procedure Category Date Status Time Ceftriaxone 1gm/50ml PHA 08/07/24 In Process D5w (Rocephin) 10:00 Date of Service: Aug 07, 2024 Billing Provider: MIKAYLA GIBSON MD Common Visit Codes: [id number] INP/OBS CARE(HIGH) MARITZA KILGORE RESIDENT Aug 07, 2024 10:18 MIKAYLA GIBSON MD Aug 07, 2024 19:17
[2024-08-07] MEDS: cefTRIAXone 1GM/50ML D5W 50 ML IV SCH (10:40)
[2024-08-07] MEDS: ENOXAPARIN SOD 40 MG/0.4 ML SYRINGE SC SCH (10:40)
[2024-08-07] MEDS: methylPREDNISolone SOD SUCC 125 MG/2 ML VL IV SCH (11:02)
[2024-08-07] MEDS: MORPHINE SULFATE INJ 2 MG/ml SYRG IV PRN (12:55)
[2024-08-07 13:24] LABS: COVID19 ANTIGEN SOFIA FIA NEGATIVE (NEGATIVE); Rapid Influenza A Negative (Negative); Rapid Influenza B Negative (Negative)
--- NOTE | 2024-08-07 13:50 | DVHSR ---
APPROVED REPORT EXAM: Two-dimensional and M-mode echocardiogram with Doppler and color Doppler. Blood Pressure: 110/65 mmHg INDICATION Chest Pain RISK FACTORS Height: 60, Weight: 191 DIMENSIONS LVDd4.4 (3.8-5.7cm)LA (2D)3.6 (1.9-4.0cm)Aortic Root3.8 (2.0-3.7cm) LVDs2.9 (2.5-4.0cm)LA (MM) (1.9-4.0cm)Aortic Cusp Exc1.9 (1.5-2.0cm) EF (%) 63.0 (55-70%)Rt. Atrium3.8 (1.9-4.0cm)Asc. Aorta cm IVSd1.1 (0.7-1.1cm)RV (D) (1.8-2.4cm) PWd1.1 (0.7-1.1cm) Mitral Valve MitralMitral Stenosis E wave0.88m/sMV Mean GR.2mmHg A wave0.88m/sMV Peak GR.4mmHg E/A ratio1.02D MVAcm2 DECEL [id number] 1/2 [id number] IVRTmsDop MVA4.18cm2 Aortic Valve Aortic ValveAortic Stenosis V11.11m/Viv Mean GR.5mmHg V21.65m/Viv Peak GR.11mmHg LVOT Diameter2.1 (1.8-2.4cm)Doppler AVA2.33cm2 Pulmonic Valve V21.07m/s Tricuspid Valve TR Velocity2.06m/s [id number] Other Information Technically limited study due to body habitus. Conclusion lvef 65% by viusal estimate normal rv function no severe valve abnormaliteis noted left atrium enlarged
[2024-08-07] MEDS ORDERED: cefTRIAXone 1GM/50ML D5W 50 ML IV SCH (21:00)
[2024-08-07] MEDS: AZITHROMYCIN 500MG/ 250ML 250 ML IV SCH (21:19)
[2024-08-07] MEDS: ATORVASTATIN 20 MG TAB PO SCH (21:25)
[2024-08-08] VITALS (13 sets, daily range): BP systolic 110–124; BP diastolic 62–76; PULSE 65–91; RESP 16–18; TEMP 98.2–98.7; O2SAT 92–99
[2024-08-08 07:49] LABS: Basophils # (auto) 0 10 ^3/uL (0-0.2); Basophils % (auto) 0.1 % (0.0-2.0); Eosinophils # (auto) 0 10 ^3/uL (0-0.8); Hematocrit 43.6 % (36.0-46.0); Hemoglobin 14.5 g/dL (12.2-16.2); Lymphocytes # (auto) 1.6 10 ^3/uL (0.4-5.4); Lymphocytes % (auto) 8.1 % (10.0-50.0); Mean Corpuscular Hemoglobin 28.7 pg (28.0-32.0); Mean Corpuscular Hgb Conc. 33.2 g/dL (32.0-36.0); Mean Corpuscular Volume 86.5 fL (80.0-100.0); Monocytes # (auto) 0.8 10 ^3/uL (0-1.3); Monocytes % (auto) 3.8 % (0.0-12.0); Neutrophils # (auto) 17.4 10 ^3/uL (1.6-8.6); Platelet Count (auto) 259 10^3/uL (140-450); Red Blood Cells 5.04 10^6/uL (4.0-5.20); Red Cell Distribution Width 13.5 % (11.8-14.3); White Blood Cell 19.8 10^3/uL (4.4-10.8)
[2024-08-08 07:59] LABS: Chloride 106 mmol/L (98-107); Potassium 4.3 mmol/L (3.5-5.1); Sodium 139 mmol/L (136-145)
[2024-08-08 08:00] LABS: Anion Gap 10 (5-15); Calcium 10.1 mg/dL (8.7-10.4); Carbon Dioxide 23 mmol/L (20-31)
[2024-08-08 08:05] LABS: Blood Urea Nitrogen 10 mg/dL (9-23); Glucose 123 mg/dL (74-106)
[2024-08-08 08:25] LABS: BUN/Creatinine Ratio 15.9 (10.0-20.0)
[2024-08-08] MEDS ORDERED: AZIT-185 PO (09:34)
--- NOTE | 2024-08-08 09:38 | DVHDSRES ---
Discharge Summary Date of Admission Resident Creating Document: MARITZA KILGORE RESIDENT Aug 06, 2024 at 22:35 Date of Discharge: Aug 08, 2024 Admitting Diagnosis Acute hypoxic respiratory failure Wounds: No wounds present at this time. Labs/Diagnostic Data: Laboratory Results Test 08/08/24 06:51 08/07/24 21:38 08/07/24 12:39 08/07/24 07:35 White Blood Count 19.8 10^3/uL (4.4-10.8) Red Blood Count 5.04 10^6/uL (4.0-5.20) Hemoglobin 14.5 g/dL (12.2-16.2) Hematocrit 43.6 % (36.0-46.0) Mean Corpuscular Volume 86.5 fL (80.0-100.0) Mean Corpuscular Hemoglobin 28.7 pg (28.0-32.0) Mean Corpuscular Hemoglobin Concent 33.2 g/dL (32.0-36.0) Red Cell Distribution Width 13.5 % (11.8-14.3) Platelet Count 259 10^3/uL (140-450) Mean Platelet Volume 9.2 fL (6.9-10.8) Neutrophils (%) (Auto) 88.0 % (37.0-80.0) Lymphocytes (%) (Auto) 8.1 % (10.0-50.0) Monocytes (%) (Auto) 3.8 % (0.0-12.0) Eosinophils (%) (Auto) 0.0 % (0.0-7.0) Basophils (%) (Auto) 0.1 % (0.0-2.0) Neutrophils # (Auto) 17.4 10 ^3/uL (1.6-8.6) Lymphocytes # (Auto) 1.6 10 ^3/uL (0.4-5.4) Monocytes # (Auto) 0.8 10 ^3/uL (0-1.3) Eosinophils # (Auto) 0 10 ^3/uL (0-0.8) Basophils # (Auto) 0 10 ^3/uL (0-0.2) Nucleated Red Blood Cells 0.0 % Sodium Level 139 mmol/L (136-145) Potassium Level 4.3 mmol/L (3.5-5.1) Chloride Level 106 mmol/L (98-107) Carbon Dioxide Level 23 mmol/L (20-31) Anion Gap 10 (5-15) Blood Urea Nitrogen 10 mg/dL (9-23) Creatinine 0.63 mg/dL (0.550-1.02) Glomerular Filtration Rate Calc 107 mL/min (>90) BUN/Creatinine Ratio 15.9 (10.0-20.0) Serum Glucose 123 mg/dL (74-106) Calcium Level 10.1 mg/dL (8.7-10.4) POC Glucose 173 mg/dl (70-106) Influenza Type A Antigen Negative (Negative) Influenza Type B Antigen Negative (Negative) SARS-CoV-2 Antigen (Rapid) Negative (NEGATIVE) Prothrombin Time 11.1 sec (9.3-11.8) Prothrombin Time INR 1.05 (0.9-1.15) Activated Partial Thromboplast Time 28.5 SEC (24.5-34.5) Total Bilirubin 0.6 mg/dL (0.2-1.0) Aspartate Amino Transferase (AST) 15 U/L (13-40) Alanine Aminotransferase (ALT) 20 U/L (7-40) Alkaline Phosphatase 78 U/L (46-116) Total Protein 7.4 g/dL (5.7-8.2) Albumin 4.5 g/dL (3.2-4.8) Test 08/06/24 18:49 08/06/24 16:10 08/06/24 16:01 Phosphorus Level 3.9 mg/dL (2.4-5.1) Magnesium Level 2.2 mg/dL (1.6-2.6) Troponin I High Sensitivity < 3 ng/L (</=34) Triglycerides Level 259 mg/dL (< 150) Cholesterol Level 219 mg/dL (< 200) LDL Cholesterol 144 mg/dL (< 100) HDL Cholesterol 56 mg/dL (40-59) Thyroid Stimulating Hormone (TSH) 1.26 uIU/mL (0.55-4.78) Urine Color Light-yellow (Yellow) Urine Clarity Clear (Clear) Urine pH 6.0 (5.0-9.0) Urine Specific [place] 1.018 (1.001-1.035) Urine Protein Negative (Negative) Urine Ketones Trace (Negative) Urine Blood Negative /uL (Negative) Urine Nitrite Negative (Negative) Urine Bilirubin Negative (Negative) Urine Urobilinogen Normal mg/dL (Negative) Urine Leukocyte Esterase 1+ /uL (Negative) Urine RBC <1 /hpf (0 - 4) Urine Microscopic WBC 5 /HPF (0-5) Urine Squamous Epithelial Cells Few /hpf (<5) Urine Bacteria None seen /hpf (None Seen) Urine Glucose Normal mg/dL (Normal) Urine Opiates Screen Neg (NEGATIVE) Urine Fentanyl Screen Neg (NEGATIVE) Urine Barbiturates Screen Neg (NEGATIVE) Urine Phencyclidine Screen Neg (NEGATIVE) Urine Amphetamines Screen Neg (NEGATIVE) Urine Benzodiazepines Screen Neg (NEGATIVE) Urine Cocaine Screen Neg (NEGATIVE) Urine Cannabinoids Screen Neg (NEGATIVE) D-Dimer, Quantitative 0.21 mg/L FEU (0.0-0.49) Hemoglobin A1c 5.4 % A1C (<5.7) Lactic Acid Level 1.0 mmol/L (0.4-2.0) B-Type Natriuretic Peptide 6.39 pg/mL (0-100) Vitamin B12 Level 331 pg/mL (211-911) Vitamin D 25-Hydroxy 19.8 ng/mL (30.0-100) Other Laboratory Tests 08/08/24 06:51 Brief Hx & Hospital Course: This is a 54-year-old female with past medical history of asthma, bronchitis, ectopic in 1996 command hysterectomy in 2019, tubal oophorectomy in 1996. Patient presented to the ED with chief complaint of cough associated with shortness of breaths. The patient states that has been having flu-like symptoms that started last week after administration of PPD vaccine. Patient believes that she got an allergic reaction from the PPD vaccine which caused her to be sick. Patient reports slightly febrile over the weekend associated with cough, shortness of breath and sharp chest pain in the left side of the chest. Upon admission initial labs showed a WBC of 14.4, BNP was grossly unremarkable. Lactic acid was normal, urinalysis came back suggesting UTI. Upon my examination, the patient still reports being slightly shortness of breath with chest pain in the left side of the chest that is reproducible to palpation and gets worse with deep palpation. EKG was unremarkable with no ST segment abnormalities or T-wave inversions. Echocardiogram showed an LVEF of 65% with no structural valve abnormalities. Patient was started on IV azithromycin and ceftriaxone for possible pneumonia. Patient was seen and examined today at bedside, patient denies shortness of breath, chest pain and is saturating 97% on room air. WBC slightly elevated today but it could be explained due to high dose of steroids. Patient has no additional complaints at this time. We will discharge the patient on azithromycin 250 mg daily for five additional days. We explained to the patient that needs to follow up with her PCP in one week. Patient agrees and understands the plan. ROS Constitutional: Denies weight loss, fever and chills. HEENT: Denies changes in vision and hearing. Respiratory: Denies shortness of breath and cough Cardiovascular: Denies chest discomfort or palpitations GI: Denies abdominal pain, nausea, vomiting and diarrhea. : Denies dysuria and urinary frequency. Musculoskeletal: Denies myalgias and joint pain Skin: Denies rash and pruritus. Neurological: Denies dizziness, headache, vision or hearing problems Physical Examination General: Patient alert and oriented in person, place and time. Patient following commands. HEENT: Normocephalic, atraumatic, moist mucous membranes Respiratory/pulmonary: Clear lungs bilaterally, no associated crackles or wheezes. Cardiovascular: Normal heart sounds S1 and S2 with no associated murmurs Abdomen: Abdomen nondistended, there is no pain to palpation in any of the abdominal quadrants, no palpable masses. Extremities: There is no peripheral edema present at the lower extremities. Peripheral Pulses: 3+ Radial (R). 3+ Radial (L). 3+ Dorsalis pedis (R). 3+ Dorsalis pedis(L) Skin: No rashes or pruritus, there is no sacral edema present at this time. Neurological: Intact cranial nerves with no focal neurologic deficits Consults/Reason for consult N/A Operations or Procedures CHEST RADIOGRAPH Indication: CP Technique: Single frontal view of the chest was obtained COMPARISON: None FINDINGS: Lines and Tubes: None Lungs: Clear Pleura: No effusion. No pneumothorax. Cardiomediastinal contours: Unremarkable Bones: Unremarkable IMPRESSION: No acute disease. EXAM: CT Chest Without Intravenous Contrast CLINICAL INDICATION: Pneumonia TECHNIQUE: Axial computed tomography images of the chest without intravenous contrast. This CT exam was performed using one or more of the following dose reduction techniques: automated exposure control, adjustment of the mA and/or kV according to patient size, and/or use of iterative reconstruction technique. CONTRAST: COMPARISON: None FINDINGS: LUNGS AND PLEURAL SPACES: Subtle consolidation of the medial aspect of the right lower lobe could be atelectasis or pneumonia. No significant effusion. HEART: Unremarkable. No cardiomegaly. No significant pericardial effusion. No significant coronary artery calcifications. MEDIASTINUM: Small esophageal hiatal hernia. BONES/JOINTS: Unremarkable. No acute fracture. No dislocation. SOFT TISSUES: Unremarkable. VASCULATURE: Unremarkable. No thoracic aortic aneurysm. LYMPH NODES: Unremarkable. No enlarged lymph nodes. LIVER: Fatty liver. OTHER FINDINGS: . IMPRESSION: 1. Subtle consolidation of the medial aspect of the right lower lobe could be atelectasis or pneumonia. 2. Small esophageal hiatal hernia. EXAM: Two-dimensional and M-mode echocardiogram with Doppler and color Doppler. Blood Pressure: 110/65 mmHg INDICATION Chest Pain RISK FACTORS Height: 60, Weight: 191 DIMENSIONS LVDd 4.4 (3.8-5.7cm) LA (2D) 3.6 (1.9-4.0cm) Aortic Root 3.8 (2.0- 3.7cm) LVDs 2.9 (2.5-4.0cm) LA (MM) (1.9-4.0cm) Aortic Cusp Exc 1.9 (1.5- 2.0cm) EF (%) 63.0 (55-70%) Rt. Atrium 3.8 (1.9-4.0cm) Asc. Aorta cm IVSd 1.1 (0.7-1.1cm) RV (D) (1.8-2.4cm) PWd 1.1 (0.7-1.1cm) Mitral Valve Mitral Mitral Stenosis E wave 0.88m/s MV Mean GR. 2mmHg A wave 0.88m/s MV Peak GR. 4mmHg E/A ratio 1.0 2D MVA cm2 DECEL Time 219ms PRESS 1/2 Time 53ms IVRT ms Dop MVA 4.18cm2 Aortic Valve Aortic Valve Aortic Stenosis V1 1.11m/s AO Mean GR. 5mmHg V2 1.65m/s AO Peak GR. 11mmHg LVOT Diameter 2.1 (1.8-2.4cm) Doppler SEB 2.33cm2 Pulmonic Valve V2 1.07m/s Tricuspid Valve TR Velocity 2.06m/s RVSP 22mmHg Other Information Technically limited study due to body habitus. Conclusion lvef 65% by viusal estimate normal rv function no severe valve abnormaliteis noted left atrium enlarged Condition at Discharge: Stable Final Diagnosis/Problems List Acute hypoxic respiratory failure likely do to Gram+/- bacterial pneumonia Possible viral pneumonia Acute bronchitis Acute chest pain likely non cardiac, likely pleuritic due to above questionable reaction to PPD vaccine History of asthma, controlled at this time Dyslipidemia Vitamin-D deficiency Morbid obesity Discharge Disposition: Home Discharge Instruct/Medications Diet: Regular Activity: No Restrictions, As Tolerated Follow Up/Referral: F/U with her PCP in 1 week Medications: Azithromycin 250mg PO Daily for 5 additional days Discharge Statement: "Patient was advised to return to the ER or call 911 if any headaches, dizziness, shortness of breath, chest pain, abdominal pain, bleeding, fevers, or worsening of medical condition. Patient was counseled about treatment plan, medications, possible side effects, patientverbalized understanding. All questions were answered to the best of my ability. This discharge took greater then 30 minutes in planning, reviewing documentation, counseling the patient, and discussing with other team members." ASSESSMENT ASSESSMENT Assessment Acute hypoxic respiratory failure likely do to Gram+/- bacterial pneumonia Possible viral pneumonia Acute bronchitis Acute chest pain likely non cardiac, likely pleuritic due to above questionable reaction to PPD vaccine History of asthma, controlled at this time Dyslipidemia Vitamin-D deficiency Morbid obesity Date of Service: Aug 08, 2024 Billing Provider: MIKAYLA DAVIDSON MD Common Visit Codes: [id number] DISCH DAY >30min MARITZA KILGORE RESIDENT Aug 08, 2024 09:38 MIKAYLA DAVIDSON MD Aug 08, 2024 10:14
[2024-08-08] MEDS: KETOROLAC TROMETH 30 MG/ML 1ML VIAL IV ONE (09:45)
== END 2024-08-08 13:42 | disposition home or self-care (01) | DRG 177 ==
LOC: ER 15:46 → OVERFLOW 22:35 → TELE-EAST 08-07 23:21
PROVIDERS: ADMIT Internal Medicine; ATTEND Internal Medicine
DX: J15.69 Pneumonia due to other Gram-negative bacteria (principal); J96.01 Acute respiratory failure with hypoxia; D72.829 Elevated white blood cell count, unspecified; J45.909 Unspecified asthma, uncomplicated; J15.9 Unspecified bacterial pneumonia; E78.5 Hyperlipidemia, unspecified; E55.9 Vitamin D deficiency, unspecified; E66.01 Morbid (severe) obesity due to excess calories; J12.9 Viral pneumonia, unspecified; J20.9 Acute bronchitis, unspecified; F41.9 Anxiety disorder, unspecified; Z87.59 Personal history of other complications of pregnancy, childbirth and the puerperium; Z90.710 Acquired absence of both cervix and uterus; Z88.0 Allergy status to penicillin; Z68.37 Body mass index [BMI] 37.0-37.9, adult; Z79.899 Other long term (current) drug therapy
CPT/HCPCS: 36415; 71045; 71046; 71250; 80048; 80053; 80061; 80307; 81001; 82306; 82607; 82962; 83036; 83605; 83735; 83880; 84100; 84443; 84484; 85025; 85379; 85610; 85730; 87081; 87426; 87804; 93005; 93306; 94640; G0378; J1956